=== PATIENT | female | born 2000 | race Caucasian/White ===

== ENCOUNTER 2023-07-11 13:21 | Emergency (ER) | payer BC ==
[~2023-07-11] VITALS: Ht 167.6 cm; Wt 122.5 kg
[2023-07-11 13:28] VITALS: O2SAT 100
[2023-07-11] MEDS ORDERED: DEXAMETHASONE 4 MG TAB PO STA (13:42)
[2023-07-11] MEDS ORDERED: LIDOCAINE 4% PATCH TP STA (13:42)
[2023-07-11] MEDS ORDERED: KETOROLAC TROMETHAMINE 30 MG/ML VIAL IM STA (13:42)
[2023-07-11] MEDS ORDERED: ACETAMINOPHEN 325 MG TAB PO ONE (13:45)
[2023-07-11] MEDS ORDERED: NAPROXEN250 MG PO (14:14)
[2023-07-11] MEDS ORDERED: LIDOCAINE1 EACH EXT (14:14)
[2023-07-11 16:47] VITALS: BP 143/70; PULSE 74; RESP 18; TEMP 97.7
== END 2023-07-11 14:41 | disposition home or self-care (01) ==
LOC: ER 13:30
DX: S39.012A Strain of muscle, fascia and tendon of lower back, initial encounter (principal); X50.0XXA Overexertion from strenuous movement or load, initial encounter; Y92.89 Other specified places as the place of occurrence of the external cause
CPT/HCPCS: 99283; J1885; J8540